=== PATIENT | female | born 1965 | race Caucasian/White ===

== ENCOUNTER 2017-05-24 07:58 | Day surgery (SDC) | payer OTHER ==
[2017-05-24] MEDS ORDERED: FENTAnyl 50 MCG/ML VIAL (10:00)
[2017-05-24] MEDS ORDERED: MIDAZOLAM 1 MG/ML 2 ML INJ ×3 (10:01)
== END 2017-05-24 12:14 | disposition home or self-care (01) ==
LOC: GIL 07:58
DX: Z12.11 Encounter for screening for malignant neoplasm of colon (principal); K21.9 Gastro-esophageal reflux disease without esophagitis; K44.9 Diaphragmatic hernia without obstruction or gangrene; K29.60 Other gastritis without bleeding; K64.8 Other hemorrhoids
CPT/HCPCS: 43239; 87081